=== PATIENT | male | born 1960 | race Hispanic/Latino ===

== ENCOUNTER 2024-09-12 17:58 | Emergency (ER) | payer OTHER ==
[~2024-09-12] VITALS: Ht 172.7 cm; Wt 89.8 kg
--- NOTE | 2024-09-12 18:09 | ERN ---
ED Note History of Present Illness Stated Complaint: LACERATION Chief Complaint: Laceration/Avulsion Time Seen by MD: 18:03 Dictation: PATIENT IS A 64-YEAR-OLD MALE COMING IN TODAY WITH A LACERATION FROM A PIECE OF GLASS TO THE RIGHT LATERAL CALF AREA ONSET1 HOUR PRIOR TO ARRIVAL. 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 HE SAID THE CORNER WAS INTACT WHEN HE GOT UP. LAST TETANUS SHOT WAS 8-9 YEARS AGO, THERE IS NO ACTIVE BLEEDING. HE DENIES BEING A DIABETIC. NEUROVASCULAR CMS INTACT. Allergies: Coded Allergies: No Known Drug Allergies (Unverified Allergy, Unknown, 09/12/24) Past Medical History RN Note Reviewed/Agreed w/PFSH: Yes Review of System Dictation CONSTITUTIONAL: NEGATIVE EXCEPT FOR HPI HEAD/FACE: NEGATIVE EXCEPT FOR HPI EENT: NEGATIVE EXCEPT FOR HPI RESPIRATORY: NEGATIVE EXCEPT FOR HPI GASTROINTESTINAL/ABDOMINAL: NEGATIVE EXCEPT FOR HPI GENITOURINARY: NEGATIVE EXCEPT FOR HPI MUSCULOSKELETAL: NEGATIVE EXCEPT FOR HPI INTEGUMENTARY: NEGATIVE EXCEPT FOR HPI RIGHT LATERAL CALF LACERATION NEUROLOGICAL/PSYCH: NEGATIVE EXCEPT FOR HPI HEMATOLOGIC/LYMPHATIC: NEGATIVE EXCEPT FOR HPI ALL SYSTEMS NEGATIVE, EXCEPT NOTED ABOVE. 13 POINT REVIEW OF SYSTEMS ASSESSED AND ALL NEGATIVE EXCEPT FOR ABOVE. Initial Vital Sign VS Vital Signs Date Time Temp Pulse Resp B/P (MAP) Pulse Ox O2 Delivery O2 Flow Rate FiO2 09/12/24 18:06 98.4 89 16 126/75 94 Room Air 0 09/12/24 18:19 21 Physical Exam Dictation VITAL SIGNS REVIEWED GENERAL APPEARANCE: ALERT, ORIENTED X 3, MILD ACUTE DISTRESS, WELL DEVELOPED, NOURISHED. HEAD AND FACE: NON-TRAUMATIC. EYES: PERRL, PINK CONJUNCTIVAS, EYELID NO TRAUMA, ANTERIOR CHAMBER WITH ARCUS SENILIS. EARS: PINNAS INTACT AND NO SIGNS OF TRAUMA OR ERYTHEMA EAR CANALS CLEAR AND NO DISCHARGE TM NO ERYTHEMA NOSE: NO DISCHARGE, NO BLEEDING. OROPHARYNX: MOUTH NORMAL, TONGUE PINK, PHARYNX CLEAR,NO ERYTHEMA, TONSILS NO EXUDATES, NO ABSCESSES NOTED, MUCOUS MEMBRANE MOIST NECK: SUPPLE, NON-TENDER, NO THYROMEGALY, NO MASSES, NO JVD, NO BRUITS BREAST:DEFERRED CHEST:NO TENDERNESS, NO CREPITUS, NO PARADOXICAL MOVEMENT, NO RETRACTIONS LUNGS:CLEAR, WELL-VENTILATED, SYMMETRIC, NO RALES, NO WHEEZING, NO RHONCHI, NO STRIDOR, GOOD BREATH SOUNDS BILATERALLY HEART: REGULAR RATE, REGULAR RHYTHM, NO MURMUR, NO GALLOPS VASCULAR: NO PERIPHERAL EDEMA, ABDOMEN: SOFT, POSITIVE BOWEL SOUNDS, NONDISTENDED, NO GUARDING, NONTENDER, NO REBOUND, NO MASSES NO HEPATOMEGALY, NO SPLENOMEGALY, NO MORAN'S SIGN, NO HERNIAS. RECTAL: DEFERRED GENITAL: DEFERRED NEUROLOGICAL: NORMAL SPEECH, MOTOR FUNCTION INTACT, SENSORY FUNCTION INTACT MUSCULOSKELETAL: NECK NONTENDER, FULL RANGE OF MOTION, BACK NONTENDER, FULL RANGE OF MOTION, EXTREMITIES: NONTENDER, FULL RANGE OF MOTION SKIN: COLOR PINK, 6.5 CM LACERATION TO RIGHT LATERAL CALF SUPERIORLY. NO ACTIVE BLEEDING AT THIS TIME DISTAL NEUROVASCULAR CMS INTACT LYMPHATIC: DEFERRED Results (Laboratory/Radiology) Labs Reviewed?: Yes ED Course ED Course Orders Procedure Category Date Status Time Lidocaine Hcl 1% 20ml PHA 09/12/24 In Process Vial (Lidocaine Hc 18:30 Neomy PHA 09/12/24 Complete Sulf/Bacitra/Polymyxin 18:30 Ibuprofen 800 Mg Tab PHA 09/12/24 Complete (Motrin) 18:30 Tetanus,Diphtheria PHA 09/12/24 Complete Tox [Adult] (Diphther 18:30 Current Medications Medications (Trade) Dose Ordered Sig/Osiel Route PRN Reason Start Time Stop Time Status Last Admin Dose Admin Ibuprofen (moTRIN) 800 mg ONCE ONCE PO 09/12/24 18:30 09/12/24 18:31 DC Lidocaine HCl (Lidocaine HCl 1% 20ml Vial) 5 ml ONCE INJ 09/12/24 18:30 10/12/24 18:29 Neomycin/ Polymyxin/ Bacitracin (Triple Antibiotic Ointment) 1 appl ONCE ONCE TP 09/12/24 18:30 09/12/24 18:31 DC Tetanus/ Diphtheria Toxoids Adsorbed (DiphthERIA-teTANUS TOXOID [ADULT]/ DECAVAC) 0.5 ml ONCE ONCE IM 09/12/24 18:30 09/12/24 18:31 DC Vital Signs Date Time Temp Pulse Resp B/P (MAP) Pulse Ox O2 Delivery O2 Flow Rate FiO2 09/12/24 18:19 98.4 89 16 126/75 94 Room Air* 0 21 09/12/24 18:06 98.4 89 16 126/75 94 Room Air 0 1845/LACERATION WAS CLOSED AND TETANUS SHOT WAS UPDATED PAIN MANAGEMENT WAS GIVEN. PATIENT GIVEN WOUND CARE INSTRUCTIONS AT BEDSIDE Medical Decision Making MDM MEDICAL DISCHARGE MAKING BASED ON LACERATION REPAIR, TETANUS UPDATE. ANALGESIA WAS GIVEN FOR MILD PAIN RIGHT LEG LACERATION REPAIRED WOUND CARE INSTRUCTIONS GIVEN Procedure Procedure Dictation: 1837/PROCEDURE EXPLAINED TO PATIENT HE AGREED TO PROCEED 6.5 CM LACERATION TO RIGHT LATERAL CALF AREA PROXIMAL CLEANSED WITH WOUND CLEANSER 3 ML 1% LIDOCAINE PLAIN FOR LOCAL ANESTHESIA CLOSED WITH ONE RUNNING 2.0 ETHILON SUTURE SINGLE-LAYER CLOSURE PATIENT TOLERATED WELL DX & DISP Disposition: Discharge Departure Impression: Primary Impression: Laceration of right lower leg without foreign body Condition: Stable Scripts Ibuprofen (Ibuprofen 800 mg Tab) 800 Mg Tab 800 MG PO Q8H PRN for fever or pain, #30 TAB 0 Refills Prov: PAOLA MAYEN NP 09/12/24 Cephalexin (Cephalexin) 500 Mg Tablet 500 MG PO TID for 7 Days, #21 TAB Prov: PAOLA MAYEN NP 09/12/24 Additional Instructions: FOLLOW-UP WITH PRIMARY CARE PROVIDER IN 1 TO 2 DAYS. TAKE MEDICATIONS DIRECTED HERE IN THE EMERGENCY ROOM. OKAY TO CONTINUE HOME MEDICATIONS UNLESS OTHERWISE DISCUSSED DURING YOUR VISIT IN THE EMERGENCY ROOM TODAY. RETURN TO YOUR NEAREST EMERGENCY ROOM IF SYMPTOMS WORSEN OR IF THERE IS NO IMPROVEMENT. CALL 911 IF YOU NEED IMMEDIATE ASSISTANCE. TAKE TYLENOL OR MOTRIN [id number] NEEDED AND IF NO CONTRAINDICATIONS ARE PRESENT. INCREASE ORAL HYDRATION. A WOUND CULTURE OR URINE CULTURE WAS ORDERED HERE IN THE EMERGENCY ROOM DEPARTMENT PLEASE FOLLOW-UP WITH PRIMARY CARE PROVIDER AND ADVISE THEM TO GET REPEAT PORTS FROM OUR FACILITY. IF YOU HAD ANY CARLOS WRAP/SPLINTS THAT WERE APPLIED HERE, PLEASE DO NOT REMOVE THEM UNTIL YOU SEE YOUR PRIMARY CARE OR SPECIALTY. KEEP LACERATION REPAIR CLEAN AND DRY. NO SWIMMING OR HOT TUBS UNTIL SUTURES ARE REMOVED. APPLY TRIPLE ANTIBIOTIC OINTMENT/[id number] TIMES A DAY FOR FIVE DAYS WITH [employer]. SUTURES OUT IN 10 DAYS. Time of Disposition: 18:47 I have reviewed the case, and I agree with, Diagnosis and Plan PAOLA MAYEN NP Sep 12, 2024 18:09
[2024-09-12 18:19] VITALS: BP 126/75; PULSE 89; RESP 16; TEMP 98.5; O2SAT 94
[2024-09-12] MEDS ORDERED: CEPH500T PO (18:48)
[2024-09-12] MEDS ORDERED: IBUP-2077 PO (18:48)
[2024-09-12] MEDS: LIDOCAINE HCL 1% 20 ML VIAL INJ SCH (18:54)
[2024-09-12] MEDS: NEOMY SULF/BACITRA/POLYMYXIN B 1 EACH PACKET TP ONE (18:58)
[2024-09-12] MEDS: ibuPROFEN 800 MG TAB PO ONE (18:59)
[2024-09-12] MEDS: teTANUS/diphthERIA TOXOID [ADULT] 0.5 ML VIAL IM ONE (19:01)
--- NOTE | 2024-09-12 19:10 | NUR ---
WOUND DRESSED, PT TOLERATED WELL
== END 2024-09-12 19:11 | disposition home or self-care (01) ==
LOC: EDH 17:58
DX: S81.811A Laceration without foreign body, right lower leg, initial encounter (principal); W25.XXXA Contact with sharp glass, initial encounter; Y93.89 Activity, other specified; Y92.89 Other specified places as the place of occurrence of the external cause; Y99.8 Other external cause status
CPT/HCPCS: 12002; 90471; 90714; 99283